=== PATIENT | male | born 1995 | race Caucasian/White ===

== ENCOUNTER 2016-12-17 20:56 | Emergency (ER) | payer SELFPAY ==
[2016-12-17] MEDS ORDERED: HALOPERIDOL LACT 5 MG/ML INJ ONE (21:02)
[2016-12-17] MEDS ORDERED: LORazepam 2 MG/ML INJ IVP ONE (21:03)
[2016-12-17] MEDS ORDERED: LORazepam 2 MG/ML INJ ONE (21:03)
[2016-12-17] MEDS ORDERED: HALOPERIDOL LACT 5 MG/ML INJ IM ONE (21:03)
[2016-12-17 22:24] LABS: ADD MORPH? NO; ADD SCAN? YES; FRAGMENT RBC FLAG 0 (0-99); LEFT SHIFT FLG 0 (0-99); LIPEMIA HEMOLYSIS FLAG 90 (0-99); PLATELET CLUMPS FLAG 0 (0-99); RED CELL DISTRIBUTION WIDTH 13.7 % (11.5-15.2)
[2016-12-17 22:36] LABS: ANION GAP 10 mEq/L (8-16); CALCIUM 9.7 mg/dL (8.5-10.4); CARBON DIOXIDE 26 mEq/l (22-31); CHLORIDE 105 mEq/L (97-110); ETHANOL SERUM < 10 mg/dL (0-10); GLOMERULAR FILTRATION RATE > 60; GLUCOSE 107 mg/dL (70-100); POTASSIUM 3.6 mEq/L (3.5-5.2); SODIUM 141 mEq/L (134-144)
[2016-12-17 22:42] LABS: HEMATOCRIT 42.1 % (40.0-51.0); HEMOGLOBIN 14.8 g/dL (13.7-17.5); MEAN CELL HEMOGLOBIN 30.7 pg (27.9-34.1); MEAN CELL HEMOGLOBIN CONCENTR. 35.2 g/dL (32.4-36.7); MEAN CELL VOLUME 87.3 fL (81.5-99.8); MEAN PLATELET VOLUME 10.4 fL (8.7-11.7); PLATELET COUNT 194 10^3/uL (150-400); RED BLOOD CELL COUNT 4.82 10^6/uL (4.40-6.38)
[2016-12-17 22:43] LABS: ATYPICAL LYMPHOCYTE FLAG 140 (0-99)
--- NOTE | 2016-12-17 22:54 | EDPHY ---
H & P HPI/ROS: Chief complaint. Agitation HPI. Patient is 21-year-old male here by JANEL Carcamo and [place] [employer] with severe agitation. Apparently the patient has been using methamphetamine and taking LSD. He was apparently found very agitated. He arrives in 4 point restraints. EMS gave the patient 5 mg of Versed IM as they were unable to start an IV secondary to the patient's combativeness. Patient is yelling about hell, fire, damnation. Unknown similar symptoms previously. ROS--unable (Ren Mccauley) Past Medical/Surgical History: Unknown (Ren Mccauley) Social History: Unknown (Ren Mccauley) Physical Exam: General Appearance: Agitated well-developed male moderate distress. Vital signs are stable. 4 point restraints Eyes: Pupils equal and round no pallor or injection. ENT, Mouth: Mucous membranes are moist. Respiratory: There are no retractions, lungs are clear to auscultation. Cardiovascular: Regular rate and rhythm. Gastrointestinal: Abdomen is soft and nontender, no masses, bowel sounds normal. Neurological: Awake and alert, sensory and motor exams grossly normal. Skin: Warm and dry, no rashes. Musculoskeletal: Neck is supple nontender. Extremities symmetrical, full range of motion. Psychiatric: Unable to assess orientation. He is agitated (Ren Mccauley) Constitutional: Initial Vital Signs Temperature (C) 36.8 C 12/17/16 21:08 Heart Rate 85 12/17/16 21:08 Respiratory Rate 18 12/17/16 21:08 Blood Pressure 125/80 H 12/17/16 21:08 O2 Sat (%) 95 12/17/16 21:08 O2 Delivery Mode Room Air O2 (L/minute) 2 Allergies/Adverse Reactions: Unable to Assess Allergy (Unverified 12/17/16 21:10) Home Medications: Medication Instructions Recorded Unobtainable 12/17/16 Medical Decision Making Procedures: The plan was to give this patient a Haldol, Benadryl, Ativan IM. However prior to giving him these medications he falls asleep. The IV is placed. He is placed on a monitor (Ren Mccauley) ED Course/Re-evaluation: Re-evaluation 11:00 p.m. and patient is sleeping. Blood sugar is 107 (Ren Mccauley) 2330 care assumed by me from Dr. Mccauley pending re-evaluation after he has metabolized his meth and LSD. 0500 patient is awake. He is still tangential. He he is claiming to be delusional and is not cooperating with me. He has very labile expressions. He continues to be under the influence of methamphetamines. Patient given Zyprexa 10 mg IM. I am not able to medically clear him at this point. He is not able to contract for safety at this time. 0700 patient signed out to Dr. Kahn pending re-evaluation after his mental status has improved. (Hardeep Nava) Differential Diagnosis: This appears to be substance intoxication consistent with both LSD and methamphetamine. No evidence for Tylenol or alcohol ingestion. (Ren Mccauley) Other Provider: Patient signed out to me at 0700. At 1330, patient awake, ambulatory. Per plan from prior team, patient will be discharged. (Finesse Kahn) Care Turn Over: Dr. Nava at 2300 (Ren Mccauley) - Data Points Laboratory Results: Laboratory Results 12/17/16 22:11 12/17/16 22:11 12/17/16 22:11 Smear Review By Steven CUMMINS MD Medications Given: Discontinued Medications Diphenhydramine HCl (Benadryl Injection) 25 mg IVP EDNOW ONE Stop: 12/17/16 21:04 Last Admin: 12/18/16 04:37 Dose: Not Given Haloperidol Lactate (Haldol Injection) 5 mg IM EDNOW ONE Stop: 12/17/16 21:04 Last Admin: 12/18/16 04:37 Dose: Not Given Lorazepam (Ativan Injection) 2 mg IVP EDNOW ONE Stop: 12/17/16 21:04 Last Admin: 12/18/16 04:37 Dose: Not Given Olanzapine (Zyprexa Im Injection) 10 mg IM EDNOW ONE Stop: 12/18/16 05:21 Last Admin: 12/18/16 05:20 Dose: 10 mg Departure - Departure Clinical Impression: Polysubstance abuse Condition: Fair Instructions: Polysubstance Abuse (ED) Additional Instructions: Refrain from drugs and alcohol. Return for worsening symptoms. Re-evaluation in 1 day by the ER or your regular physician without fail Referrals: Patient,NotPresent [Primary Care Provider] - As per Instructions
[2016-12-17 23:00] LABS: ADD DIFF? YES; SCAN POSITIVE
[2016-12-17 23:05] LABS: PLATELET ESTIMATE ADEQUATE (ADEQ)
[2016-12-18 04:30] VITALS: RESP 16
[2016-12-18] MEDS ORDERED: OLANZapine DISINTEGR 5 MG TAB ONE (05:02)
[2016-12-18] MEDS ORDERED: OLANZapine 10 MG/2 ML VIAL ONE (05:05)
[2016-12-18] MEDS ORDERED: OLANZapine 10 MG/2 ML VIAL IM ONE (05:20)
[2016-12-18 07:41] VITALS: O2SAT 97
[2016-12-18 13:40] VITALS: BP 119/68; PULSE 78; TEMP 98.1
== END 2016-12-18 13:54 | disposition home or self-care (01) ==
LOC: EDBD 20:56
DX: F19.10 Other psychoactive substance abuse, uncomplicated (principal)
CPT/HCPCS: G0480; J1200; J2060

== ENCOUNTER 2016-12-19 16:59 | Inpatient (IN) | payer MEDICAID ==
[2016-12-19] MEDS ORDERED: LORazepam 2 MG/ML INJ IVP ONE (17:06)
[2016-12-19] MEDS ORDERED: HALOPERIDOL LACT 5 MG/ML INJ IVP ONE (17:07)
--- NOTE | 2016-12-19 17:13 | EDPHY ---
Mental Health General Previous Psychiatric History: substance abuse History Review: I reviewed the patient's medical records, I obtained additional history from the patient's family Time Patient Placed on M1 Hold: 16:25 ([place] [employer]) Time Medically Cleared for Psychiatric Evaluation: 23:59 Time of Transfer of Care: 00:[address]:Choco Nava Course: patient remained stable over course of my shift, no additional interventions Narrative: HPI: This is a 21-year-old male who presents with Chief Complaint: Psychosis Location: Quality: Psychosis Duration: Today Signs and Symptoms: No fever, no neck pain, no chest pain, no shortness of breath Timing: Unknown Severity: Moderate Context: Patient is brought in by [employer] on an M1 hold as they were called for patient running through the Street barefoot trying to run into cars. He reportedly was yelling "God wants me to do it." Patient became combative with police; handcuffed. EMS was called and given Versed 5 mg. please believe that patient is taking LSD and/or amphetamines. Patient was seen here several days ago for similar situation. At that time, he was having jainism outbursts and talking about damnation and hell. Modifying Factors: Comment: ROS: Limited due to altered mentation Constitutional: No fever, no chills, no weight loss Eyes: No blurred vision Respiratory: No shortness of breath, no cough Cardiovascular: No chest pain Gastrointestinal: No nausea, no vomiting no diarrhea Genitourinary: No dysuria Extremities: No myalgias Neurologic: No weakness, no numbness Skin: No rashes Hematologic: No bruising, no bleeding MEDICAL/SURGICAL/SOCIAL HISTORY: Unable to obtain. CONSTITUTIONAL: Uncooperative physically fit white male, yelling now awake and alert, no obvious distress HEENT: Atraumatic and normocephalic, PERRL, EOMI. Tympanic membranes clear. Oropharynx clear, poor dentition, no exudate and moist pink mucosa. Airway patent. No lymphadenopathy. No meningismus. Cardiovascular: Normal S1/S2, tachycardia, regular rhythm, without murmur rub or gallop. PULMONARY/CHEST: Symmetrical and nontender. Clear to auscultation bilaterally Good air movement. No accessory muscle usage. ABDOMEN: Soft, nondistended, nontender, no rebound, no guarding, no peritoneal signs, no masses or organomegaly. No CVAT. EXTREMITIES: 2/2 radial pulses, 1 inch superficial abrasion over left clavicle ; refuses to move left arm at the shoulder. Left elbow FROM. Left wrist FROM. no deformities, no clubbing, no cyanosis or edema. NEUROLOGICAL: no focal neuro deficits. alert to self only. will not follow commands. PSYCH: + flight of ideas, + paranoia, + psychosis, + leah SKIN: Warm and dry, multiple cuts, abrasions noted on arms. Feet are black with dirt. no erythema. no rash. Good capillary refill. (Magali Tellez) Medical Decision Making: Labs, urinalysis, IV medications ordered Left shoulder and Left Clavicle xray ordered. 1754: Left clavicle x-ray reviewed via PACs with Dr. Erickson and shows nonacute mid-clavicle fracture. Patient placed in sling. 1809: Nurse just notified that the patient is sleeping soundly from Versed given prior to arrival to the ER. Ativan and Haldol not given. Pulse ox obtained 2358: Reviewed labs/urinalysis and medically clear for mental health evaluation. 0001: End of shift: Signed over to Dr. Nava pending mental health evaluation. Patient slept majority of shift. No additional interventions needed. (Magali Tellez) 0005 care assumed by me from JUAN MANUEL Tellez pending mental health evaluation. 0700 patient has been sleeping overnight. No issues during my care. Patient signed out to Dr. Kahn pending mental health evaluation. (Hardeep Nava) PHYSICIAN DOCUMENTATION: The patient was evaluated and managed by the Physician Patent Searcher and myself. I have reviewed the chart and agree with the findings and plan of care as documented. In addition, I examined the patient myself at 1805. Physical findings as follows: Patient has a little abrasion over his left mid clavicle but no laceration or tenting of the skin. Sleeping quietly and will arouse to physical stimulus. Placed on a pulse oximeter at this time. Labs reviewed vital signs reviewed. Signed out to Dr. Nava at 2230 with plan for psych evaluation. 845 on 12/21: Some increasing agitation, given oral Ativan 1 mg and oral Zyprexa 10 mg prior to transfer. I am the secondary supervising physician. (Bartolo Erickson) 11:50 p.m. the patient will be re-evaluated in the morning. He is currently uncooperative with examination. (Fernando Vance) - Objective Vital Signs: Initial Vital Signs Temperature (C) 36.5 C 12/19/16 16:59 Heart Rate 99 12/19/16 16:59 Respiratory Rate 20 12/19/16 16:59 Blood Pressure 135/85 H 12/19/16 16:59 O2 Sat (%) 95 12/19/16 16:59 O2 Delivery Mode Room Air Allergies/Adverse Reactions: Unable to Assess Allergy (Verified 12/19/16 17:09) Home Medications: Medication Instructions Recorded Unobtainable 12/21/16 Medications Given: Discontinued Medications Haloperidol Lactate (Haldol Injection) 5 mg IVP EDNOW ONE Stop: 12/19/16 17:08 Last Admin: 12/20/16 09:30 Dose: Not Given Ibuprofen (Motrin) 600 mg PO EDNOW ONE Stop: 12/19/16 19:32 Last Admin: 12/20/16 01:32 Dose: Not Given Lorazepam (Ativan Injection) 2 mg IVP EDNOW ONE Stop: 12/19/16 17:07 Last Admin: 12/20/16 09:30 Dose: Not Given Lorazepam (Ativan) 2 mg PO EDNOW ONE Stop: 12/20/16 09:32 Last Admin: 12/20/16 09:31 Dose: 2 mg Lorazepam (Ativan) 1 mg PO EDNOW ONE Stop: 12/21/16 08:39 Last Admin: 12/21/16 08:47 Dose: 1 mg Olanzapine (Zyprexa Zydis) 10 mg PO EDNOW ONE Stop: 12/20/16 09:18 Last Admin: 12/20/16 09:30 Dose: 10 mg Olanzapine (Zyprexa Zydis) 10 mg PO EDNOW ONE Stop: 12/21/16 07:43 Last Admin: 12/21/16 07:47 Dose: 10 mg Laboratory Results: Laboratory Results 12/19/16 17:05 12/19/16 17:05 Departure - Departure Disposition: [facility] IP Clinical Impression: Acute psychosis Fracture of clavicle, left, closed Qualifiers: Encounter type: subsequent encounter Clavicle location: shaft Fracture alignment: nondisplaced Fracture healing: with routine healing Qualified Code(s) : S42.025D - Nondisplaced fracture of shaft of left clavicle, subsequent encounter for fracture with routine healing Condition: Good
[2016-12-19 17:15] LABS: % IMMATURE GRANULYOCYTES 0.3 % (0.0-1.1); ABSOLUTE IMMATURE GRANULOCYTES 0.02 10^3/uL (0.00-0.10); ADD DIFF? NO; ADD MORPH? NO; ADD SCAN? NO; ATYPICAL LYMPHOCYTE FLAG 80 (0-99); FRAGMENT RBC FLAG 0 (0-99); HEMATOCRIT 43.9 % (40.0-51.0); HEMOGLOBIN 15.3 g/dL (13.7-17.5); LEFT SHIFT FLG 0 (0-99); LIPEMIA HEMOLYSIS FLAG 90 (0-99); MEAN CELL HEMOGLOBIN 30.5 pg (27.9-34.1); MEAN CELL HEMOGLOBIN CONCENTR. 34.9 g/dL (32.4-36.7); MEAN CELL VOLUME 87.6 fL (81.5-99.8); MEAN PLATELET VOLUME 10.2 fL (8.7-11.7); PLATELET CLUMPS FLAG 0 (0-99); PLATELET COUNT 210 10^3/uL (150-400); RED BLOOD CELL COUNT 5.01 10^6/uL (4.40-6.38); RED CELL DISTRIBUTION WIDTH 13.5 % (11.5-15.2)
[2016-12-19 17:31] LABS: ANION GAP 14 mEq/L (8-16); CALCIUM 9.9 mg/dL (8.5-10.4); CARBON DIOXIDE 23 mEq/l (22-31); CHLORIDE 105 mEq/L (97-110); CREATININE 0.9 mg/dL (0.7-1.3); ETHANOL SERUM < 10 mg/dL (0-10); GLOMERULAR FILTRATION RATE > 60; GLUCOSE 102 mg/dL (70-100); POTASSIUM 3.9 mEq/L (3.5-5.2); SALICYLATE < 1.0 mg/dL (2.0-20.0); SODIUM 142 mEq/L (134-144)
[2016-12-19] MEDS: IBUPROFEN 600 MG TAB PO ONE (19:56)
[2016-12-20] MEDS: IBUPROFEN 600 MG TAB PO ONE (01:32)
[2016-12-20] MEDS ORDERED: OLANZapine DISINTEGR 10 MG TAB PO ONE (09:17)
[2016-12-20] MEDS ORDERED: LORazepam 1 MG TAB ONE (09:19)
[2016-12-20] MEDS ORDERED: LORazepam 1 MG TAB PO ONE (09:31)
[2016-12-21] MEDS ORDERED: OLANZapine DISINTEGR 10 MG TAB PO ONE (07:42)
[2016-12-21] MEDS ORDERED: LORazepam 1 MG TAB PO ONE (08:38)
[2016-12-21] MEDS ORDERED: MAGNESIUM HYDROXIDE 30 ML UDCUP PO PRN (13:17)
[2016-12-21] MEDS ORDERED: LORazepam 0.5 MG TAB PO PRN (13:17)
[2016-12-21] MEDS ORDERED: MAG HYDROX/AL HYDROX/SIMETH 30 ML UDCUP PO PRN (13:17)
--- NOTE | 2016-12-21 14:50 | BCON ---
[f rep st] BEHAVIORAL HEALTH CONSULTATION INTERNAL MEDICINE CONSULTATION DATE OF CONSULTATION: 12/21/2016 REFERRING PHYSICIAN: Chon Diggs MD REASON FOR REFERRAL: Medical clearance for inpatient behavioral health stay. HISTORY OF PRESENT ILLNESS: This patient came to the emergency department 2 days ago, and brought in by police. He was found running in traffic, asking cars to run him over, barefoot. In the emergency department, he was agitated. He had a similar encounter 2 days prior, on 12/17/2016. In the course of his encounters with the police and the emergency department, he was placed in four- point restraints due to agitation, and he subsequently was found to have a left clavicle fracture. Though his toxicology screens were negative, his behavior was consistent with intoxication with LSD and methamphetamine, both of which he admitted to using. Currently, he is somnolent, having been medicated heavily with benzodiazepines and antipsychotics. However, he is able to awaken sufficiently to report that his shoulder hurts. He declines further history taking and exam. PAST MEDICAL HISTORY: Left clavicle fracture. PAST SURGICAL HISTORY: Unknown. MEDICATIONS: He was not taking any medications. SOCIAL HISTORY: He is homeless. He is a polysubstance abuser, admitting to use of LSD and methamphetamine. He is a smoker. FAMILY HISTORY: Unknown. REVIEW OF SYSTEMS: Very limited. He reports that he is tired and that he has shoulder pain. Otherwise, he does not participate. PHYSICAL EXAM: GENERAL: This is a well-nourished, well-developed man, appears his chronologic age, lying in bed, uncooperative. HEENT: Extraocular movements appear to be intact when he opens his eyes. Head is atraumatic and normocephalic. LUNGS: He has regular breathing. No respiratory distress. No retractions. No tachypnea. CARDIOVASCULAR/ABDOMINAL: Exams could not be performed. NEUROLOGIC: He is sleepy. He awakes to verbal stimulation. He appears to be able to move all extremities and further exam could not be conducted. LABORATORY STUDIES: From the emergency department: CBC was overall within normal limits, but for a slight elevation of absolute lymphocytes of no clinical significance. Serum chemistry revealed normal renal function and electrolytes. Glucose was 102, slightly elevated, but this was likely not fasting. Toxicology screen in the serum was negative for salicylates, acetaminophen or ethyl alcohol, and the urine was negative for any substances of abuse. ASSESSMENT/RECOMMENDATIONS: 1. Mental health issues pending further evaluation and management per psychiatry and the mental health team. 2. Left clavicle fracture. Agree with emergency department recommendation for sling, for use for comfort. He will need to be cleared by psychiatry for safety with a sling. 3. Polysubstance abuse. He may benefit from specific substance abuse counseling. 4. Tobacco dependence syndrome, advised smoking cessation. I see no medical contraindications to this patient's continued stay in the inpatient behavioral health unit or to any psychiatric medications or procedures. Thank you very much for including me in the care of this patient, and please do not hesitate to contact me or the hospitalist service should there be any further medical evaluation. /[id number]/MODL MTDD
[2016-12-21] MEDS: ACETAMINOPHEN 325 MG TAB PO PRN (21:07)
[2016-12-22] MEDS: ACETAMINOPHEN 325 MG TAB PO PRN (07:56)
--- NOTE | 2016-12-22 14:58 | BAPA ---
[f rep st] ADMISSION PSYCHIATRIC ASSESSMENT DATE OF SERVICE: 12/22/2016 CHIEF COMPLAINT: "I am God. I am delusional." HISTORY OF PRESENT ILLNESS: This is a 21-year-old homeless man, brought to the [facility] ED on 12/19/2016 by the [place] on an M1 hold that states, "Police were dispatched to [address] [place] [address] about a brenden running through the streets telling people to run him over. Once the respondent was in handcuffs, he began telling us that we were all . The respondent appeared to be under the influence of a subst ance. Respondent was calm and then would start yelling. These reasons led me to believe that the re spondent was gravely disabled." In the course of his encounters with the police and in the emergency department, he was placed in 4-point restraints due to agitation, and he subsequently was found to h ave a left clavicle fracture. Though his tox screens were negative, his behavior was consistent with intoxication with LSD and methamphetamines, both of which he admitted to using in the days just prio r to his encounter with the police. On his initial presentation, the patient was somnolent, having b een heavily medicated with benzodiazepines and antipsychotics in the ED. [facility] states that the patient was evaluated in the [facility] ED on 12/17/2016 for similar agitated and erratic behavior. When he was ev aluated in the ED on 12/17/2016, there was no urine drug screen performed, given that the patient had admitted to using amphetamines that day. He was discharged from the ED, and no psychiatric evaluati on was requested at that time. The patient told the [facility] hand gluer and slicer that he has a history of being jt gnosed with obsessive-compulsive disorder, borderline personality disorder, and bipolar disorder. e patient says, "If I'm homeless, it means I don't have anything medication-abreu. Oh my God, let the police figure it out." The patient also says, "I think I am God, but really I'm Satan." The patien t says, "No. I'm a fucking drug addict. Use your instinct." When the patient was transferred from the emergency department to the adult inpatient behavioral health unit on [address] [place] [address] on 12/21/2016, he w as extremely somnolent and uncooperative. He was very resistant to questioning and refused to respon d when the psychiatrist attempted to interview him. He only gave minimal responses when the hospital ist, Dr. Donnie Hernandez, attempted to do an interview, and he was also uncooperative. On 12/22/2016 , when this MD attempted to interview the patient, he was extremely animated and hyperactive. This M Oscar observed the patient in the art therapy group room, standing up, pacing in the room, talking in a l oud voice about spirituality and about jainism, stating that he was God, that he had a direct line o f communication with God, and that he was an expert on spiritual matters. It was difficult for any o f the other patients to interrupt or to contribute or participate in the group because the patient wa s monopolizing the conversation. When the MD later sat down to talk with the patient at a table in [facility] lunch room, the first thing that the patient said was "I think I am God and I am delusional." The patient also change his voice and would talk in a very mechanical way. He would also talk in a low g rowling voice, and he would go back and forth spontaneously. However, the MD also witnessed that the patient sat quietly while eating his meal and was not talking loudly or engaging in unusual voices. His behavior on the unit, other than being dramatic and monopolizing attention from his peers and fr om the staff, has not been in any way aggressive or otherwise erratic. The patient has been sleeping quite a lot. He slept about 8 hours last night. There is no decrease in need for sleep or increase in goal-directed activity. Although the patient is quite animated, he can maintain appropriate spee ch carlo, and a normal rate and rhythm for most of the time. PAST PSYCHIATRIC HISTORY: There is actually very little collateral information that we have about th e patient, other than his self-report of prior diagnoses of OCD, personality disorder, and bipolar di sorder. He states that he is not taking any medications. He does not have any outpatient providers. He does not say when he has last seen a psychiatrist or when he has last been on medication. When asked where does he think his mood instability comes from or the mood swings that have led other peop le to diagnose him with bipolar disorder, the patient says it is because "I am a fucking drug addict. " The patient reports using methamphetamines starting at age 18 and uses IV meth. He says that his last use of meth was on 12/17/2016, when he was also seen in the ED because with his behavior. The n ote from the emergency department on 12/17/[address] Ren Mccauley. On that note, the [facility] was agitation. In the HPI says, "The patient is a 21-year-old male here, brought in b y EMS and the [place] PD was severe agitation. Apparently, the patient has been using methamphetamin es and taking LSD. He was found very agitated. He arrived in 4-point restraints. EMS gave the miguel ent 5 mg of Versed IM, as they were unable to start an IV secondary to the patient's combativeness. The patient was yelling about Hellfire and damnation." At that time, the patient was given Haldol, B enadryl, and Ativan. He fell asleep. He was given Zyprexa 10 mg IM. The diagnosis that Dr. Mccauley said "This appears to be substance intoxication consistent with both LSD and methamphetamine." The patient, after metabolizing the amphetamines, was discharged from the ED. ALLERGIES: The patient does not report any known drug allergies. CURRENT MEDICATIONS: The patient is not taking any medications. The only meds he received were thos e that were given to him in the emergency department on 12/17 and on 12/19 due to severe agitation an d combativeness due to acute intoxication. PAST MEDICAL HISTORY: The patient does not endorse any chronic medical problems. He currently has a n acute left clavicle fracture, believed to be due to his agitation and combativeness in the ED, and the fact that he was in 4-point restraints. PAST SURGICAL HISTORY: He has no surgical history. SOCIAL HISTORY: The patient says that he has family members in [place], but does not say where he gr ew up. He says that he has an Stebbins dad and says that they are very close, but that this man is not his biological father. He says that his biological parents when he was 7 years old. He sa ys that he grew up in [place]. The patient declined to provide any further information. Currently, he is single. No children. He says, "I chose to be homeless." The patient does not have any connec tions with any peer support group, and it is not clear if he has been staying in any homeless longterm s or getting any social services aide recently. SUBSTANCE USE HISTORY: The patient admits to IV injection of methamphetamines starting at the age of [age] years old. He says he started using LSD in April of 2016 and says, "Oh my God, it's the greate st drug ever." There is no evidence of alcohol use or other drug use. His urine tox screen was nega tive for all substances, which is inconsistent with his self-report. FAMILY HISTORY: The patient states that there is addiction and alcoholism in his family, but decline s to give further details. ADMISSION LABORATORIES: White cell count 7.25, RBC 5.01, hemoglobin 15.3, hematocrit 43.9, platelet count 210. Sodium level 142, potassium 3.9, chloride 105, BUN 18, creatinine 0.9, glucose 102, calci um 9.9. Urine drug screen was negative for all drugs of abuse. Alcohol level was less than 10. Bud icylate and acetaminophen levels were both undetected. MENTAL STATUS EXAMINATION: This is a well-nourished, well-developed man, who appears his chronologic al age. He is standing up, wearing blue jeans. No socks or shoes. He is alert and oriented x3. Hi s affect is elevated and animated. His mood he says is "good." His thought process is tangential an d perseverative. He freely admits, "I am delusional." His thought content reveals that he denies an y auditory or visual hallucinations. There is no evidence he is responding to internal or external s timuli. He denies any paranoia, and he repeatedly tells the MD, "I think I am God. I am delusional. " The patient frequently talks about jainism, Hell, and damnation, and this is a common refrain for the patient, as it was noted in the medical records from the ER doctor who evaluated him on 12/18/19 17. The patient was saying very similar things. He said the same things on 12/19/2016 when he was e valuated in the ED. Today, he is saying them, but without any of the agitation or combativeness that was evident when he was acutely intoxicated. Today, he seems to be saying them for attention and in order to monopolize conversations in group and also to get attention from the staff. At other times , he is calm, sitting by himself, preoccupied with his own activities, and is not showing any signs o r evidence of psychosis or erratic behavior at those times. So, his thought content of his delusions does seem to wax and wane. His intellect appears to be below average, based upon education, occupat ional history, fund of knowledge, and vocabulary. His insight and judgment both seem to be impaired. DIAGNOSES: 1. Substance-induced psychosis. 2. Amphetamine use disorder, severe. 3. Hallucinogen use disorder, severe. 4. Psychosocial stressors include homelessness, lack of social support, unemployed, financial proble ms, and chronic polysubstance dependence. PLAN OF TREATMENT: 1. Admit patient to the inpatient behavioral health unit on on an M1 hold. 2. Monitor closely for safety. The patient denies any thoughts, plans, or intents to hurt himself o r anybody else. He does not pose a danger to himself or others at the current time. 3. We will prescribe Ativan as well as Zyprexa in order to treat the patient's agitation, which is g reatly reduced from when he was in the emergency department. We will offer Zyprexa 10 mg p.o. at bed time as a scheduled dose, as well as a 5 mg p.o. q.4 hour p.r.n. dose. So far, when the patient has been offered medications, he has refused, so even though the patient freely admits that everyone on t he unit that he is "delusional," he states that he does not think he needs medications and that he borges s been doing "just fine" living on the street and using methamphetamines and LSD, which he says are h is preferred drugs of choice. 4. We will engage the patient in individual, group, and milieu psychotherapies. 5. Estimated length of stay is 1-2 days. 6. Recommend outpatient substance use treatment, either through [facility] or through [facility], but a t the current time, the patient states that he has no interest in stopping his use of mood altering s ubstances, even though they seem to precipitate psychotic episodes, as well as increase his level of agitation and combativeness, as well as impair his judgment and make him do reckless and impulsive th ings, which bring him to the attention of the [place] PD which account for his 2 recent visits to the ED. Despite these negative consequences, the patient shows no signs or interest in contemplating re ducing or stopping his use of these substances at this time. We will also recommend that the patient be referred to [facility] in order to follow up and provide therapy for the patient, as well as case management should he change his mind and decides that he wants help in reducing or cutti ng back his use of mood-altering and cognitively impairing substances. It would be ineffective to tr eat the patient for psychosis on an ongoing basis as long as he continues to use methamphetamines and LSD, both of which are extremely potent psychosis-inducing substances. The patient will really not benefit from any type of psychopharmacotherapy until such time as he is no longer using the meth, the LSD, and any other mood-altering substances. /[id number]/MODL
[2016-12-22] MEDS: LORazepam 0.5 MG TAB PO PRN (18:57)
[2016-12-22] MEDS: OLANZapine DISINTEGR 10 MG TAB PO SCH (20:59)
[2016-12-23] MEDS: ACETAMINOPHEN 325 MG TAB PO PRN ×2 (02:50→14:41)
[2016-12-23] MEDS: LORazepam 0.5 MG TAB PO PRN ×3 (02:50→21:07)
[2016-12-23] MEDS: OLANZapine 5 MG TAB PO PRN (02:51)
--- NOTE | 2016-12-23 13:36 | SOAPPROG ---
SOAP Progress Note Assessment/Plan: Assessment: 21 yo man with h/o polysubstance dependence. He presented to ED BIB police after walking through traffic. He was combative with police and was in 4 point restraint and given IM meds d/t agitation. Patient was intoxicated with meth and LSD at the time. He has long h/o IV meth use and LSD use, as well as other drugs. 12/23/16 13:31 Plan: 1. Patient is taking Ativan PRN, but still refuses Zyprexa and all other AAPs. 2. Patient is much less volatile, labile and irritable today. He is talking less about God, but still carries Bible around with him. 3. CC spoke to patient's "uncle," Michael in [place] who confirms that patient does really well when he is living [place] and doesn't have access to drugs. Michael says he has been "looking after" Venkat for past 4 years. He claims Venkat's bio MOC "got him hooked on drugs." Michael is willing to pay for plane ticket so Venkat can fly to [place] and Joe. will pick him up. Venkat agree with this plan. Subjective: Met with patient and discussed with staff. SARITA, Mirella, and I met with patient together. 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 He says he wants to go to [place] but doesn't have the money. He would like to stay with his "father" Michael if he can get a plane or bus ticket. He denies any thoughts, plan or intent to kill himself. Objective: Vital Signs Temp Pulse Resp BP Pulse Ox 36.3 C 91 15 133/63 H 96 12/23/16 02:58 12/23/16 02:58 12/23/16 02:58 12/23/16 02:58 12/23/16 02:58 MSE: Wearing street clothes, barefoot, seated at table, loud, but not fidgeting and no hyperactivity. Affect: Elevated, labile Mood: "Good" TP: Disorganized, tangential TC: Denies AH/VH, no SI/HI, no paranoia, claims he's "God" but question whether these are really delusions, since he doesn't act on his beliefs and his statements seem to wax/wane Insight/Judgment: Poor - Time Spent With Patient Time Spent With Patient: 20" - Pending Discharge Pending Discharge Within 24 Hours: No Pending Discharge Within 48 Hours: No ICD10 Worksheet Patient Problems: Problems Problem Status Onset Acute psychosis Acute Fracture of clavicle, left, closed Acute Hallucinogen dependence Acute 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 - ICD10 Problem Qualifiers (1) Substance-induced psychotic disorder with delusions (2) Methamphetamine dependence (3) Hallucinogen dependence
[2016-12-23] MEDS: OLANZapine DISINTEGR 10 MG TAB PO SCH (21:07)
[2016-12-24] MEDS: OLANZapine 5 MG TAB PO PRN ×3 (04:35→17:18)
[2016-12-24] MEDS: LORazepam 0.5 MG TAB PO PRN ×3 (04:35→18:04)
[2016-12-24] MEDS: ACETAMINOPHEN 325 MG TAB PO PRN ×2 (05:04→16:28)
--- NOTE | 2016-12-24 12:41 | SOAPPROG ---
SOAP Progress Note Assessment/Plan: Assessment: 21 yo man with h/o polysubstance dependence. He presented to ED BIB police after walking through traffic. He was combative with police and was in 4 point restraint and given IM meds d/t agitation. Patient was intoxicated with meth and LSD at the time. He has long h/o IV meth use and LSD use, as well as other drugs. 12/23/16 13:31 Plan: 1. Patient is taking Ativan PRN, but still refuses Zyprexa and all other AAPs. 2. Patient is much less volatile, labile and irritable today. He is talking less about God, but still carries Bible around with him. 3. CC spoke to patient's "uncle," BonnieSerafin in [place] who confirms that patient does really well when he is living [place] and doesn't have access to drugs. Michael says he has been "looking after" Venkat for past 4 years. He claims Venkat's bio MOC "got him hooked on drugs." Michael is willing to pay for [employer] so Venkat can fly to [place] and Michael will pick him up. Venkat agree with this plan. 12/24/16 12:36 Plan: 1. Patient took Zyprexa last HS. 2. Reduce Ativan dose. 3. CC in communication with Michael to arrange transport back to [place]. Patient wants to leave [facility]. Subjective: Met with patient and discussed with staff. Patient presents with irritable outbursts d/t frustration with "being held a prisoner" in hospital. He says he wants to leave and go back to [place], but when MD and staff remind patient they are working to arrange his transportation with his "father" BonnieSerafin, he says, "just let me walk out of here and I'll get there ([place])." Patient is not mentioning his delusions anymore, he no longer claims "I'm God," but is still carrying a Bible. Patient tells MD, "I'm a pacifist, but I will hit somebody...no not really, I'm not going to hurt anybody, I'm mad, but I won't hit anyone." He denies any SI/HI, denies AH/VH, does not appear to be responding to IS/ES, but is labile and frequently irritable. Objective: Vital Signs Temp Pulse Resp BP Pulse Ox 36.3 C 107 H 16 127/79 H 98 12/24/16 04:19 12/24/16 04:19 12/24/16 04:19 12/24/16 04:19 12/24/16 04:19 MSE: Patient wearing jeans and T-shirt, barefoot, adequately groomed, cooperative, but labile. Affect: Labile, irritable Mood: "OK" TP: Tangential , illogical at times TC: Denies any AH/VH, no SI/HI, no paranoia, less delusional Insight/Judgment: Poor (wants to walk to [place]) - Time Spent With Patient Time Spent With Patient: 20" - Pending Discharge Pending Discharge Within 24 Hours: No Pending Discharge Within 48 Hours: No ICD10 Worksheet Patient Problems: Problems Problem Status Onset Acute psychosis Acute Fracture of clavicle, left, closed Acute Hallucinogen dependence Acute 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 - ICD10 Problem Qualifiers (1) Substance-induced psychotic disorder with delusions (2) Methamphetamine dependence (3) Hallucinogen dependence
[2016-12-24] MEDS: OLANZapine DISINTEGR 10 MG TAB PO SCH (22:09)
[2016-12-25] MEDS: ACETAMINOPHEN 325 MG TAB PO PRN ×2 (00:44→07:58)
[2016-12-25] MEDS: OLANZapine 5 MG TAB PO PRN ×3 (00:45→14:51)
[2016-12-25] MEDS: LORazepam 0.5 MG TAB PO PRN ×4 (01:40→14:51)
[2016-12-25] MEDS: NICOTINE POLACRILEX 2 MG GUM B PRN ×4 (08:53→17:52)
--- NOTE | 2016-12-25 18:40 | SOAPPROG ---
SOAP Progress Note Assessment/Plan: Assessment: 21 yo man with h/o polysubstance dependence. He presented to ED BIB police after walking through traffic. He was combative with police and was in 4 point restraint and given IM meds d/t agitation. Patient was intoxicated with meth and LSD at the time. He has long h/o IV meth use and LSD use, as well as other drugs. 12/23/16 13:31 Plan: 1. Patient is taking Ativan PRN, but still refuses Zyprexa and all other AAPs. 2. Patient is much less volatile, labile and irritable today. He is talking less about God, but still carries Bible around with him. 3. CC spoke to patient's "uncle," JoeJacki in [place] who confirms that patient does really well when he is living [place] [address] [place] and doesn't have access to drugs. SnehalJackiSerafin says he has been "looking after" Venkat for past 4 years. He claims Venkat's bio MOC "got him hooked on drugs." Michael is willing to pay for [employer] so Venkat can fly to [place] and Michael will pick him up. Venkat agree with this plan. 12/24/16 12:36 Plan: 1. Patient took Zyprexa last HS. 2. Reduce Ativan dose. 3. CC in communication with Michael to arrange transport back to [place]. Patient wants to leave [facility]. 12/25/16 18:36 Plan: 1. Patient had Zyprexa 5mg PRN last night and this afternoon d/t agitation. 2. Will increase PRN Ativan to 2mg q4h 3. Patient has been compliant with HS dose of Zyprexa 4. CC spoke to JoeJacki who is willing to drive to [place] to case picker patient since he has no form of ID Subjective: Met with patient and discussed with staff. Patient has been more irritable and agitated today. He frequently approaches nurses' station and complains about being a "prisoner" and wanting to leave the hospital. He is respectful when speaking to MD, but will have angry outbursts when he raises his voice and insists "I need to get out of here." MD reminds him that CC is working with his "father" J.P. in [place] to arrange transportation, but patient insists he will " find my own way" to get to [place]. explains this would be least safe option and encourages patient to give CC and J.P. time to work out what is best for patient. Patient denies any AH/VH, not talking about "God" or exhibiting any other signs of psychosis or delusions. Denies any SI/HI. Objective: Vital Signs Temp Pulse Resp BP Pulse Ox 36.4 C 98 16 132/72 H 95 12/25/16 06:00 12/25/16 06:00 12/25/16 06:00 12/25/16 06:00 12/25/16 06:00 MSE: Pacing halls, talking loudly, wearing blanket around his shoulders. Affect : Labile, irritable Mood: Irritable TP: Tangential, disorganized TC: Denies any AH/VH, no evidence of paranoia or delusions, no SI/HI Insight/Judgment: Poor - Time Spent With Patient Time Spent With Patient: 20" - Pending Discharge Pending Discharge Within 24 Hours: No Pending Discharge Within 48 Hours: Yes Pending Discharge Date: 12/27/16 (Waiting to hear how soon his "father" J.P. can get to [place]) Pending Discharge Time: 11:00 ICD10 Worksheet Patient Problems: Problems Problem Status Onset Acute psychosis Acute Fracture of clavicle, left, closed Acute Hallucinogen dependence Acute 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 - ICD10 Problem Qualifiers (1) Substance-induced psychotic disorder with delusions (2) Methamphetamine dependence (3) Hallucinogen dependence
[2016-12-25] MEDS: LORazepam 1 MG TAB PO PRN (19:28)
[2016-12-25] MEDS: OLANZapine DISINTEGR 10 MG TAB PO SCH (19:28)
[2016-12-26] MEDS: ACETAMINOPHEN 325 MG TAB PO PRN ×2 (02:35→18:43)
[2016-12-26] MEDS: LORazepam 1 MG TAB PO PRN ×3 (02:45→19:35)
[2016-12-26] MEDS: OLANZapine 5 MG TAB PO PRN ×3 (02:46→19:35)
[2016-12-26] MEDS: NICOTINE POLACRILEX 2 MG GUM B PRN ×3 (09:01→20:25)
--- NOTE | 2016-12-26 12:35 | SOAPPROG ---
SOAP Progress Note Assessment/Plan: Assessment: 21 yo man with h/o polysubstance dependence. He presented to ED BIB police after walking through traffic. He was combative with police and was in 4 point restraint and given IM meds d/t agitation. Patient was intoxicated with meth and LSD at the time. He has long h/o IV meth use and LSD use, as well as other drugs. 12/23/16 13:31 Plan: 1. Patient is taking Ativan PRN, but still refuses Zyprexa and all other AAPs. 2. Patient is much less volatile, labile and irritable today. He is talking less about God, but still carries Bible around with him. 3. CC spoke to patient's "uncle," BonnieSerafin in [place] who confirms that patient does really well when he is living [address] [place] and doesn't have access to drugs. Michael says he has been "looking after" Venkat for past 4 years. He claims Venkat's bio MOC "got him hooked on drugs." Michael is willing to pay for plane ticket so Venkat can fly to [place] and Michael will pick him up. Venkat agree with this plan. 12/24/16 12:36 Plan: 1. Patient took Zyprexa last HS. 2. Reduce Ativan dose. 3. CC in communication with Michael to arrange transport back to [place]. Patient wants to leave [facility]. 12/25/16 18:36 Plan: 1. Patient had Zyprexa 5mg PRN last night and this afternoon d/t agitation. 2. Will increase PRN Ativan to 2mg q4h 3. Patient has been compliant with HS dose of Zyprexa 4. 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 Patient requested PRN Ativan and Zyprexa this AM d/t agitation. 2. Patient is compliant with medication. 3. Patient perseverates on when he will be discharged. MD reminds him that Michael has to make arrangements to leave his ranch and will take time for him to drive all the way to [place]. Subjective: Met with patient and discussed with staff. Patient is intrusive and demanding to be discharged. He had PRN Ativan and Zyprexa this AM d/t agitation and is calmer when talking to MD, however, he still insists that MD "call my father" and find out "when he's coming to get me." explains that patient's CC, Ta, has been in communication with J.P. everyday, and that J.P. has to make his own arrangements to leave his ranch and it will take time for him to drive to [place]. Patient is only temporarily satisfied with this explanation. He returns later and asks MD, "have you talked to J.P., when am I leaving?" Patient denies any SI /HI, has no AH/VH, and no paranoia or delusions are in evidence now. Objective: Vital Signs Temp Pulse Resp BP Pulse Ox 36.3 C 102 H 12 123/75 H 96 12/26/16 06:00 12/26/16 06:00 12/26/16 06:00 12/26/16 06:00 12/26/16 06:00 MSE: Intrusive, loud at times, needs frequent redirection and reminding about rules by staff. Affect: Less irritable than yesterday Mood: "OK" still irritable and easily frustrated TP: Perseverative, disorganized TC: Denies AH/ VH, denies SI/HI, no paranoia, no delusions today Insight/Judgment: Poor - Time Spent With Patient Time Spent With Patient: 20" - Pending Discharge Pending Discharge Within 24 Hours: No Pending Discharge Within 48 Hours: Yes Pending Discharge Date: 12/28/16 (Will d/c as soon as J.P. arrives from [place]) Pending Discharge Time: 11:00 ICD10 Worksheet Patient Problems: Problems Problem Status Onset Acute psychosis Acute Fracture of clavicle, left, closed Acute Hallucinogen dependence Acute 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 - ICD10 Problem Qualifiers (1) Substance-induced psychotic disorder with delusions (2) Methamphetamine dependence (3) Hallucinogen dependence
[2016-12-26] MEDS: OLANZapine DISINTEGR 10 MG TAB PO SCH (20:25)
[2016-12-27] MEDS: ACETAMINOPHEN 325 MG TAB PO PRN ×2 (01:27→20:14)
[2016-12-27] MEDS: LORazepam 1 MG TAB PO PRN ×4 (01:32→21:04)
[2016-12-27] MEDS: OLANZapine 5 MG TAB PO PRN ×3 (01:32→14:20)
[2016-12-27] MEDS: NICOTINE POLACRILEX 2 MG GUM B PRN (14:20)
--- NOTE | 2016-12-27 16:29 | SOAPPROG ---
SOAP Progress Note Assessment/Plan: Assessment: 21 yo man with h/o polysubstance dependence. He presented to ED BIB police after walking through traffic. He was combative with police and was in 4 point restraint and given IM meds d/t agitation. Patient was intoxicated with meth and LSD at the time. He has long h/o IV meth use and LSD use, as well as other drugs. 12/23/16 13:31 Plan: 1. Patient is taking Ativan PRN, but still refuses Zyprexa and all other AAPs. 2. Patient is much less volatile, labile and irritable today. He is talking less about God, but still carries Bible around with him. 3. CC spoke to patient's "uncle," BonnieSerafin in [place] who confirms that patient does really well when he is living [address] [place] and doesn't have access to drugs. Michael says he has been "looking after" Venkat for past 4 years. He claims Venkat's bio MOC "got him hooked on drugs." Michael is willing to pay for plane ticket so Venkat can fly to [place] and Michael will pick him up. Venkat agree with this plan. 12/24/16 12:36 Plan: 1. Patient took Zyprexa last HS. 2. Reduce Ativan dose. 3. CC in communication with Michael to arrange transport back to [place]. Patient wants to leave [facility]. 12/25/16 18:36 Plan: 1. Patient had Zyprexa 5mg PRN last night and this afternoon d/t agitation. 2. Will increase PRN Ativan to 2mg q4h 3. Patient has been compliant with HS dose of Zyprexa 4. 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 Patient requested PRN Ativan and Zyprexa this AM d/t agitation. 2. Patient is compliant with medication. 3. Patient perseverates on when he will be discharged. reminds him that Michael has to make arrangements to leave his ranch and will take time for him to drive all the way to [place]. 12/27/16 16:24 Plan: 1. Patient is calmer and less intrusive and demanding. 2. He received total of 6 mg of Ativan PRN on 12/26 and 12/27. He also received total of 15mg PRN Zyprexa both days in addition to his scheduled dose of 10mg at HS. 3. CC has left two voicemail messages with J.P. today with no response. Not clear if J.P. will come to pick patient up or try to arrange transportation with someone else. Will try to confirm tomorrow. Subjective: Met with patient and discussed with staff. Patient greets MD with pleasant smile , is less intrusive and demanding MD "discharge me now." He is not talking as loudly and is interacting more appropriately with staff and peers. When MD observed him later in afternoon, he was resting with his head down on table in dining room after coloring. He is still restless and anxious at times, but not as agitated as he has been past several days. He is willing to take PRN meds to help him calm down. CC and MD called J.P and left message to find out when he would be able to drive to [place] to pick patient up. Objective: Vital Signs Temp Pulse Resp BP Pulse Ox 36.4 C 111 H 15 136/74 H 96 12/27/16 05:14 12/27/16 05:14 12/27/16 05:14 12/27/16 05:14 12/27/16 05:14 MSE: Calmer and more cooperative, but still gets anxious and agitated at times. Affect: Euthymic, less labile Mood: "OK" TP: More organized and less pressured TC: Denies any SI/HI, no AH/VH, no paranoia, less delusional Insight /Judgment: Poor - Time Spent With Patient Time Spent With Patient: 20" - Pending Discharge Pending Discharge Within 24 Hours: No Pending Discharge Within 48 Hours: Yes Pending Discharge Date: 12/29/16 (Maybe Sat or Sun depending on whether J.P. can drive from [place] to pick him up) Pending Discharge Time: 11:00 ICD10 Worksheet Patient Problems: Problems Problem Status Onset Acute psychosis Acute Fracture of clavicle, left, closed Acute Hallucinogen dependence Acute 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 - ICD10 Problem Qualifiers (1) Substance-induced psychotic disorder with delusions (2) Methamphetamine dependence (3) Hallucinogen dependence
[2016-12-28] MEDS: OLANZapine 5 MG TAB PO PRN (04:29)
[2016-12-28] MEDS: LORazepam 1 MG TAB PO PRN (04:29)
[2016-12-28] MEDS: OLANZapine DISINTEGR 10 MG TAB PO SCH ×3 (04:33→21:15)
[2016-12-28] MEDS: ACETAMINOPHEN 325 MG TAB PO PRN (04:49)
[2016-12-28] MEDS: NICOTINE POLACRILEX 2 MG GUM B PRN ×2 (08:19→16:43)
[2016-12-28] MEDS ORDERED: HALOPERIDOL LACT 5 MG/ML INJ ONE ×2 (11:16→11:20)
[2016-12-28] MEDS ORDERED: BENZTROPINE MESYLATE 2 MG/2 ML INJ IM ONE (11:16)
[2016-12-28] MEDS ORDERED: HALOPERIDOL LACT 5 MG/ML INJ IM ONE (11:16)
[2016-12-28] MEDS ORDERED: LORazepam 2 MG/ML INJ IM ONE (11:16)
[2016-12-28] MEDS ORDERED: LORazepam 2 MG/ML INJ ONE (11:17)
[2016-12-28] MEDS ORDERED: BENZTROPINE MESYLATE 2 MG/2 ML INJ ONE (11:20)
[2016-12-28] MEDS ORDERED: BENZTROPINE MESYLATE 2 MG/2 ML INJ IM PRN (12:17)
[2016-12-28] MEDS ORDERED: OLANZapine 10 MG/2 ML VIAL IM PRN ×2 (12:17→15:00)
[2016-12-28] MEDS ORDERED: LORazepam 2 MG/ML INJ IM PRN (12:17)
--- NOTE | 2016-12-28 14:45 | SOAPPROG ---
SOAP Progress Note Assessment/Plan: Assessment: 21 yo man with h/o polysubstance dependence. He presented to ED BIB police after walking through traffic. He was combative with police and was in 4 point restraint and given IM meds d/t agitation. Patient was intoxicated with meth and LSD at the time. He has long h/o IV meth use and LSD use, as well as other drugs. 12/23/16 13:31 Plan: 1. Patient is taking Ativan PRN, but still refuses Zyprexa and all other AAPs. 2. Patient is much less volatile, labile and irritable today. He is talking less about God, but still carries Bible around with him. 3. CC spoke to patient's "uncle," BonnieSerafin in [place] who confirms that patient does really well when he is living [address] [place] and doesn't have access to drugs. Michael says he has been "looking after" Venkat for past 4 years. He claims Venkat's bio MOC "got him hooked on drugs." Michael is willing to pay for plane ticket so Venkat can fly to [place] and Michael will pick him up. Venkat agree with this plan. 12/24/16 12:36 Plan: 1. Patient took Zyprexa last HS. 2. Reduce Ativan dose. 3. CC in communication with Michael to arrange transport back to [place]. Patient wants to leave [facility]. 12/25/16 18:36 Plan: 1. Patient had Zyprexa 5mg PRN last night and this afternoon d/t agitation. 2. Will increase PRN Ativan to 2mg q4h 3. Patient has been compliant with HS dose of Zyprexa 4. 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 Patient requested PRN Ativan and Zyprexa this AM d/t agitation. 2. Patient is compliant with medication. 3. Patient perseverates on when he will be discharged. reminds him that Michael has to make arrangements to leave his ranch and will take time for him to drive all the way to [place]. 12/27/16 16:24 Plan: 1. Patient is calmer and less intrusive and demanding. 2. He received total of 6 mg of Ativan PRN on 12/26 and 12/27. He also received total of 15mg PRN Zyprexa both days in addition to his scheduled dose of 10mg at HS. 3. has left two voicemail messages with J.P. today with no response. Not clear if J.P. will come to pick patient up or try to arrange transportation with someone else. Will try to confirm tomorrow. 12/28/16 14:42 Plan: 1. Patient became aggressive, agitated when MD explained why he couldn't leave hospital. MD tried to explain that J.P. will come from [place] to pick him up, but needs time to make those arrangements. Patient became hostile, irate and postured to MD, later to other staff as well. 2. Gave Haldol 10mg IM, Ativan 2mg IM and Cogentin 1mg IM once. 3. Start E-MEDS Day #1. 4. has left multiple messages yesterday and today with J.P. but so far no response. He was supposed to find friends who could pick patient up and bring him home to [place]. If not, J.P. was going to drive to [place] and get patient himself. Patient has no ID, so can't take public transportation. Subjective: Met with patient and discussed with staff. Patient insisted on leaving hospital. No matter how many times MD explained that J.P. has not finalized a way to pick patient up from hospital, patient insisted he would got stay on street or in [facility]. explained that last time patient did this, he was picked up by police b/c he was combative and agitated. Patient insists he "did nothing wrong" and blamed the police. MD reminded patient that he told MD he wanted to return to [place] and live with J.P. on his ranch where he has done well in past. This is still patient's plan, but he just doesn't want to wait for J.P. to come pick him up. Patient became hostile, agitated and threatening toward MD and other staff. He was given e-meds, and later was calmer, quieter and less agitated. He attempted to contact Michael by phone. Objective: Vital Signs Temp Pulse Resp BP Pulse Ox 36.4 C 107 H 14 151/66 H 96 12/28/16 06:00 12/28/16 06:00 12/28/16 06:00 12/28/16 06:00 12/28/16 06:00 MSE: Agitated, hostile, yelling and screaming, threatening MD and staff. 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
[2016-12-28] MEDS ORDERED: OLANZapine 5 MG TAB PO SCH (15:00)
[2016-12-28] MEDS: LORazepam 1 MG TAB PO SCH ×2 (16:42→21:14)
[2016-12-28] MEDS: BENZTROPINE MESYLATE 1 MG TAB PO SCH (21:16)
[2016-12-29] MEDS: BENZTROPINE MESYLATE 1 MG TAB PO SCH ×2 (07:51→21:02)
[2016-12-29] MEDS: LORazepam 1 MG TAB PO SCH ×3 (07:51→21:00)
[2016-12-29] MEDS: OLANZapine DISINTEGR 10 MG TAB PO SCH ×2 (07:51→21:00)
[2016-12-29] MEDS: ACETAMINOPHEN 325 MG TAB PO PRN (12:52)
--- NOTE | 2016-12-29 12:57 | SOAPPROG ---
SOGRANT Progress Note Assessment/Plan: Assessment: Plan: 12/29/16 12:55 Remains the same. Still quite symptomatic. CCM. Subjective: Pt seen, discussed with staff, chart reviewed. He is animated, but coop. Rambles about being a god, "but were all gods." Focused on talking to "my [place] dad." Jumps back and forth on many topics including jain and philosophy. Speaks in several different voices. Calmer after E-meds yesterday. Took prn Zyprexa and Ativan this morning. Objective: Vital Signs Temp Pulse Resp BP Pulse Ox 36.4 C 105 H 16 129/71 H 96 12/29/16 06:00 12/29/16 06:00 12/29/16 06:00 12/29/16 06:00 12/29/16 06:00 MSE: Agitated, pressured. Speaking in different voices and accents. Affect is expansive. Mood is "fine." TP tangential. TC reveals paranoid, grandiose and confucianist ideas, IOR's. States he is "telepathic" and can hear others' thoughts. 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
[2016-12-29] MEDS: NICOTINE POLACRILEX 2 MG GUM B PRN (22:32)
[2016-12-30] MEDS: ACETAMINOPHEN 325 MG TAB PO PRN ×2 (04:16→11:53)
[2016-12-30] MEDS: LORazepam 1 MG TAB PO SCH ×3 (08:23→19:17)
[2016-12-30] MEDS: BENZTROPINE MESYLATE 1 MG TAB PO SCH ×2 (08:23→19:17)
[2016-12-30] MEDS: NICOTINE POLACRILEX 2 MG GUM B PRN ×2 (09:52→15:45)
[2016-12-30] MEDS: OLANZapine DISINTEGR 10 MG TAB PO PRN (11:52)
[2016-12-30] MEDS: OLANZapine DISINTEGR 10 MG TAB PO SCH (19:17)
--- NOTE | 2016-12-30 20:37 | SOAPPROG ---
SOGRANT Progress Note Assessment/Plan: Assessment: Plan: 12/29/16 12:55 Remains the same. Still quite symptomatic. CCM. 12/30/16 20:37 Slow improvement. CCM. Subjective: Pt seen, discussed with staff. Reports feeling "Super." Doing animal and devil voices. Generally cooperative until an altercation with another patient in group. Became enraged and required prn's. Calmed after that. Upset he cant ' be d/c'd immediately. Compliant with meds. Objective: Vital Signs Temp Pulse Resp BP Pulse Ox 36.6 C 100 16 130/70 H 96 12/30/16 08:00 12/30/16 08:00 12/30/16 08:00 12/30/16 08:00 12/30/16 08:00 MSE Agitated, elevated, pressured. Affect is o/w expansive, irritable at times. Mood is "super." TP tangential, but redirectable. TC reveals familiar delusional processes. - Time Spent With Patient Time Spent With Patient: 25" ICD10 Worksheet Patient Problems: Problems Problem Status Onset Acute psychosis Acute Fracture of clavicle, left, closed Acute Hallucinogen dependence Acute 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
[2016-12-31] MEDS: ACETAMINOPHEN 325 MG TAB PO PRN ×3 (06:26→18:03)
[2016-12-31] MEDS: NICOTINE POLACRILEX 2 MG GUM B PRN ×3 (09:18→20:56)
[2016-12-31] MEDS: BENZTROPINE MESYLATE 1 MG TAB PO SCH (10:56)
[2016-12-31] MEDS: LORazepam 1 MG TAB PO SCH (10:56)
--- NOTE | 2016-12-31 12:14 | SOAPPROG ---
SOAP Progress Note Assessment/Plan: Assessment: 1. Polysubstance Dependence Advise sobriety. 2. Bipolar, Manic Taking olanzapine, but with minimal improvement at this time. Plan: Increase olanzapine to 20 mg HS Change lorazepam to 0.5 mg QID prn anxiety. 12/31/16 12:22 Subjective: "I am enlightened, not insane." "I'm telepathic. " "I'm a vagabond." "I'm a junkie." Significantly grandiose during interview with me. Tells me he has been hospitalized five times. Reports he does not want to be on any medications. Admits to substance abuse. Says his most desired drug is methamphetamines. He tells me he will use any drug he can get ahold of. He has abused Cannabis, nicotine, opiods, amphetamines, and sedative/hypnotics. He appears to fit the definition of polysubstance dependence. Objective: Vital Signs Temp Pulse Resp BP Pulse Ox 36.3 C 95 12 126/72 H 96 12/31/16 01:54 12/31/16 01:54 12/31/16 01:54 12/31/16 01:54 12/31/16 01:54 Medications Generic Name Dose Route Start Last Admin Trade Name Freq PRN Reason Stop Dose Admin Benztropine Mesylate 1 mg 12/28/16 21:00 12/31/16 10:56 Cogentin PO 06/26/17 20:59 Not Given BID AVIS Lorazepam 2 mg 12/28/16 16:00 12/31/16 10:56 Ativan PO 06/26/17 15:59 Not Given TID AVIS Olanzapine 10 mg 12/22/16 21:00 12/30/16 19:17 Zyprexa Zydis PO 06/20/17 20:59 10 mg HS AVIS Awake, alert, casually dressed, grooming reasonable Speech rapid and pressured Mood "Fine" Affect elevated, so mood and affect are incongruent Thought processes tangential and disorganized Thought content grandiose Lacks insight, lacks judgment ICD10 Worksheet Patient Problems: Problems Problem Status Onset Acute psychosis Acute Fracture of clavicle, left, closed Acute Hallucinogen dependence Acute 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
[2016-12-31] MEDS ORDERED: OLANZapine DISINTEGR 10 MG TAB PO SCH (12:28)
[2016-12-31] MEDS ORDERED: BENZTROPINE MESYLATE 1 MG TAB PO PRN (12:29)
[2016-12-31] MEDS: LORazepam 0.5 MG TAB PO PRN (22:17)
[2017-01-01] MEDS: OLANZapine DISINTEGR 10 MG TAB PO PRN (02:22)
[2017-01-01] MEDS: NICOTINE POLACRILEX 2 MG GUM B PRN ×2 (06:31→11:03)
[2017-01-01] MEDS: ACETAMINOPHEN 325 MG TAB PO PRN (07:01)
[2017-01-01] MEDS: LORazepam 0.5 MG TAB PO PRN (13:40)
[2017-01-01] MEDS ORDERED: LORazepam 1 MG TAB PO PRN (13:45)
[2017-01-01] MEDS ORDERED: HALOPERIDOL LACT 5 MG/ML INJ IM PRN (13:45)
[2017-01-01] MEDS ORDERED: BENZTROPINE MESYLATE 1 MG TAB PO PRN (13:45)
[2017-01-01] MEDS ORDERED: BENZTROPINE MESYLATE 2 MG/2 ML INJ IM PRN (13:45)
[2017-01-01] MEDS ORDERED: LORazepam 2 MG/ML INJ IM PRN (13:45)
[2017-01-01] MEDS ORDERED: HALOPERIDOL LACT 5 MG/ML INJ ONE (13:52)
[2017-01-01] MEDS ORDERED: HALOPERIDOL 5 MG TAB PO PRN (13:55)
--- NOTE | 2017-01-01 13:59 | SOAPPROG ---
SOAP Progress Note Assessment/Plan: Assessment: 1. Polysubstance Dependence Advise sobriety. 2. Bipolar, Manic Taking olanzapine, but with minimal improvement at this time. 3. Became imminently dangerous, aggressive, yelling, and would not cooperate with attempts to redirect and calm down. Will seclude for up to 24 hours. EMeds for dangerousness to others to include haloperidol 10 mg BID and as needed doses of benztropine and lorazepam. Plan: Increase olanzapine to 20 mg HS Change lorazepam to 0.5 mg QID prn anxiety. 01/01/17 13:56 Subjective: "You are Satan." "Give me a goofball, give me heroin, I don't want to take your drugs." Became physically intimidating, clenched fists, aggressive posture, verbally abusive, yelling loudly. Attempted to direct patient back to room, but we were unable to redirect him or help him calm down. Objective: Vital Signs Temp Pulse Resp BP Pulse Ox 36.3 C 95 12 126/72 H 96 12/31/16 01:54 12/31/16 01:54 12/31/16 01:54 12/31/16 01:54 12/31/16 01:54 Medications Generic Name Dose Route Start Last Admin Trade Name Freq PRN Reason Stop Dose Admin Olanzapine 20 mg 12/31/16 12:28 12/31/16 20:58 Zyprexa Zydis PO 06/20/17 20:59 20 mg HS AVIS MSE Awake, alert, uncooperative, aggressive threatening posture, intimidating manner Yelling, cursing, unable to calm down ICD10 Worksheet Patient Problems: Problems Problem Status Onset Acute psychosis Acute Fracture of clavicle, left, closed Acute Hallucinogen dependence Acute 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
[2017-01-01] MEDS: HALOPERIDOL 5 MG TAB PO SCH (14:11)
[2017-01-01] MEDS ORDERED: HALOPERIDOL 10 MG TAB PO SCH (21:00)
[2017-01-02] MEDS: NICOTINE POLACRILEX 2 MG GUM B PRN ×3 (06:10→19:25)
[2017-01-02] MEDS: ACETAMINOPHEN 325 MG TAB PO PRN (07:54)
[2017-01-02] MEDS: HALOPERIDOL 5 MG TAB PO SCH ×2 (09:00→19:23)
--- NOTE | 2017-01-02 12:27 | SOAPPROG ---
SOAP Progress Note Assessment/Plan: Assessment: 1. Polysubstance Dependence Advise sobriety. 2. Bipolar, Manic (vs Schizoaffective) Haloperidol was more effective than olanzapine. Will change to haloperidol Continue to work on placement and follow up. 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 Only wants to talk about discharge, so interview not very productive today. Objective: Vital Signs Temp Pulse Resp BP Pulse Ox 36.3 C 110 H 15 131/63 H 95 01/02/17 03:49 01/02/17 03:49 01/02/17 03:49 01/02/17 03:49 01/02/17 03:49 MSE Awake, alert pressured speech, rapid speech grandiose delusions less irritable lacks any insight or judgment ICD10 Worksheet Patient Problems: Problems Problem Status Onset Acute psychosis Acute Fracture of clavicle, left, closed Acute Hallucinogen dependence Acute 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
[2017-01-02] MEDS ORDERED: BENZTROPINE MESYLATE 1 MG TAB PO PRN (12:30)
[2017-01-02] MEDS ORDERED: HALOPERIDOL 2 MG TAB PO PRN (12:31)
[2017-01-03 07:57] VITALS: RESP 14
[2017-01-03] MEDS ORDERED: HALOPERIDOL 5 MG TAB PO SCH (09:00)
--- NOTE | 2017-01-03 11:29 | SOAPPROG ---
SOAP Progress Note Assessment/Plan: Assessment: 1. Polysubstance Dependence Advise sobriety. 2. Bipolar, Manic (vs Schizoaffective) Haloperidol has been more effective than olanzapine. Increase haloperidol to 10 mg BID We hope to discharge tomorrow to return to his home in [place]. Can give a full month of meds by Rx. Plan: haloperidol 10 mg BID 01/03/17 11:35 Subjective: "I'm a Wicken. You are God and I am Satan." "Slept pretty good." Denies problems other than he wants to be discharged. Slept well. Energy fine. Appetite and concentration normal. Denies mood problems. Requests discharge so he can return to his home in [place]. Would like to be there this weekend, saying there is a [place] there he can attend and participate in. Objective: Vital Signs Temp Pulse Resp BP Pulse Ox 36.3 C 110 H 14 112/61 98 01/03/17 06:00 01/03/17 06:00 01/03/17 06:00 01/03/17 06:00 01/03/17 06:00 Medications Generic Name Dose Route Start Last Admin Trade Name Jeffq PRN Reason Stop Dose Admin Haloperidol 5 mg 01/03/17 09:00 01/03/17 08:26 Haldol PO 07/02/17 08:59 5 mg DAILY AVIS Haloperidol 10 mg 01/03/17 21:00 01/02/17 19:23 Haldol PO 07/02/17 20:59 10 mg HS AVIS MSE Awake, alert, casually dressed, grooming reasonable Pt has periods of irritability with loud voice and expressions of frustration Thought processes more organized, but still has periods of FOI. Accepts direction to get back on track. Thought content with ongoing grandiose delusions. These appear to be at their baseline. Minimal insight, but improved judgment around taking medications. ICD10 Worksheet Patient Problems: Problems Problem Status Onset Acute psychosis Acute Fracture of clavicle, left, closed Acute Hallucinogen dependence Acute 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
[2017-01-03] MEDS: NICOTINE POLACRILEX 2 MG GUM B PRN (14:06)
[2017-01-03] MEDS: HALOPERIDOL 5 MG TAB PO SCH (20:12)
[2017-01-04 06:43] VITALS: TEMP 97.7
[2017-01-04] MEDS: HALOPERIDOL 5 MG TAB PO SCH ×3 (07:34→20:32)
[2017-01-04] MEDS: ACETAMINOPHEN 325 MG TAB PO PRN (09:00)
--- NOTE | 2017-01-04 12:20 | SOAPPROG ---
SOAP Progress Note Assessment/Plan: Assessment: 1. Polysubstance Dependence Advise sobriety. 2. Schizoaffective, Bipolar type (v Schizophrenia or Bipolar with psychosis) Schizoaffective Disorder Diagnosis supported by ongoing grandiose delusions with the presence of leah (increased energy, rapid/pressured speech, intrusiveness). Schizophrenia alone a possibility as well, but minimal negative symptoms present, possibly covered up by leah, so I favor Schizoaffective Disorder Diagnosis. Haloperidol has been more effective than olanzapine. Continue haloperidol 10 mg BID We hope to discharge tomorrow to return to his home in [place]. Can give a full month of meds by Rx. Plan: haloperidol 10 mg BID 01/04/17 12:22 Subjective: "I'm a Grateful fan." "I'm going to miss the [place], but that's okay because I have a broken collarbone." Slept 9 hours last night. Reports feeling good today. Denies mood, energy, sleep , concentration or appetite problems. Denies SI. Denies AH/VH. Able to keep his grandiose thoughts and statements under control with me today. More conversational. Plan is for discharge tomorrow, Saturday, to go home to [place] by bus. Objective: Vital Signs Temp Pulse Resp BP Pulse Ox 36.5 C 92 14 129/62 H 95 01/04/17 06:00 01/04/17 06:00 01/04/17 06:00 01/04/17 06:00 01/04/17 06:00 Medications Generic Name Dose Route Start Last Admin Trade Name Freq PRN Reason Stop Dose Admin Haloperidol 10 mg 01/03/17 21:00 01/04/17 08:55 Haldol PO 07/02/17 20:59 10 mg BID AVIS MSE Awake, alert, casually dressed, reasonable grooming Speech a little rapid at times but less pressured, more conversational. Thought processes more linear, less tangential, and better able to bring himself back on track Thought content contains grandiose delusions, but able to keep these to himself mostly Poor insight and judgment ICD10 Worksheet Patient Problems: Problems Problem Status Onset Acute psychosis Acute Fracture of clavicle, left, closed Acute Hallucinogen dependence Acute 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
--- NOTE | 2017-01-04 13:45 | BDS ---
[f rep st] BEHAVIORAL HEALTH DISCHARGE SUMMARY DIAGNOSES: 1. Schizoaffective disorder, bipolar type. 2. Polysubstance dependence. PROCEDURES: None. COMPLICATIONS: None. BRIEF REVIEW OF CASE: The patient is a 21-year-old male who came in for his first inpatient psychiat franc stay at [facility] on 12/21/2016. He was brought to the hospital emergency departm ent by police officers. The police department had gotten calls about the patient when he was in [facility], running around the streets and yelling loudly, telling people to run over him. He ap peared to be hyperactive and agitated. He was brought to the emergency department, where he continue d to be hyperactive and agitated. He readily admitted to polysubstance dependence. He talked about many different substances that he w ould use. His substance abuse includes amphetamines, hallucinogens, opioids, cannabis, and alcohol. He readily admits that his preferred substances are amphetamines and hallucinogens. 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 This still may be the best diagnosis for this patient. After having him in the hospital for 2 weeks and seeing very l ittle resolution of his symptoms, I suspect there is an underlying psychotic level disorder present a s well. Initially because of the elevated mood symptoms, I thought this might be bipolar mood disord er with psychosis. However, he does not seem to have had decreased need for sleep, nor the persisten ce in his symptom complex that I usually see with bipolar mood disorder. We have also considered dustin izophrenia and schizoaffective disorder, and these seem more likely. He has a significant lack of ne gative symptoms, or at least his negative symptoms are minimal. Nonetheless, he has ongoing grandios e and paranoid delusions that are consistent with schizophrenia or schizoaffective disorder. I favor the schizoaffective disorder diagnosis, with a bipolar type of schizoaffective disorder. This could account for both the ongoing delusions as well as some of the intermittent manic behavior that he ex hibits. After admission, we initially placed him on olanzapine. He was intermittent in taking olanzapine and did not seem to benefit from it very much. He escalated to a point where he was yelling and threate en and I thought he was imminently dangerous, so I did seclude him and give him emergency medicines 3 days ago. I elected to try haloperidol, and it seemed to be significantly more effective for his psychosis. It was not completely effective. He continued to have some grandiose delusions or at [address] made grandiose statements, but there was much less force behind them. Also, there was less manic behavior. He was more easily directable to positive expressions. He showed less of the high and pot entially dangerous energy that he had early on, so we elected to continue haloperidol and worked the dose up to 10 mg twice daily. He did not have any extrapyramidal symptom problems on haloperidol. Joseph lopez appeared to tolerate it well. There was initially some concern about the possibility of suicide because he seemed to be asking [facility] to harm him initially. However, he denied ongoing suicidal thinking during his hospital stay. He talked about the future and had many plans for the future, and when directly asked, denied suicidal thoughts. His psychosis improved, and his mood was not depressed. Thus correctable risks for danger ousness were minimized during this hospital stay and I do assess his dangerousness risk as minimal at the time of discharge. We talked to this patient a great deal about his drug use. His drug use may be primarily, or seconda rily, responsible for his psychotic behavior. Either way, he would be greatly helped by avoiding simin g use. Unfortunately, he shows minimal insight to this at this point in time. However, his discharg e plan is for him to return to [place] in [place]. He has some family there who care for him greatly. Our communication with them suggested that they understand the destructiveness of substance s in his life. However, they go on to [place] available, so living with his [place] in [place] is a good way to minimize his acc ess to substances, and we hope he will improve and decide to remain off substances. By 01/05/2017, we thought he had reached maximal hospital benefit. He had been admitted on a 72-hour mental health hold and placed on a short-term certification. He [place] be crossing state lines, and alex lopez will be dropping the certification at the time of discharge. His medications at the time of discharge include haloperidol 10 mg twice daily and benztropine 1 mg t wice daily if needed for extrapyramidal symptoms. He did not need any benztropine during this hospit al stay. He did not show evidence of extrapyramidal symptoms. With excellent support from the care coordination team, we have been able to obtain through some donated hospital funds a bus ticket for t his patient to return to his family in [place]. Our plan is for him to discharge on 01/05 and we leandro l outline how he can return to his family in [place] through use of our local and long-distance bus s ervice. I will be providing him a 30-day prescription for his medications after discharge so that he has enough time to find a treating physician in [place] who can refill the medications. We hope the patient remains on his medications, stays sober, and does well after discharge. /[id number]/[id number]
[2017-01-05 06:52] VITALS: BP 132/59; PULSE 104; O2SAT 96
[2017-01-05] MEDS: HALOPERIDOL 5 MG TAB PO SCH (08:30)
== END 2017-01-05 11:45 | disposition home or self-care (01) | DRG 897 ==
LOC: EDUNIT# → BBEH 12-21 10:15
PROVIDERS: ADMIT Psychiatry & Neurology Psychiatry; ATTEND Specialist
DX: F16.150 Hallucinogen abuse with hallucinogen-induced psychotic disorder with delusions (principal); F15.150 Other stimulant abuse with stimulant-induced psychotic disorder with delusions; F25.0 Schizoaffective disorder, bipolar type; S42.025A Nondisplaced fracture of shaft of left clavicle, initial encounter for closed fracture; Y35.893A Legal intervention involving other specified means, suspect injured, initial encounter; X50.9XXA Other and unspecified overexertion or strenuous movements or postures, initial encounter; Z59.0 Homelessness; F17.210 Nicotine dependence, cigarettes, uncomplicated
CPT/HCPCS: 80305; A4565; G0480; J0515; J1200; J2060